=== PATIENT | female | born 1950 | race Asian ===

== ENCOUNTER 2017-10-19 16:34 | Emergency (ER) | payer OTHER ==
[2017-10-19 16:53] VITALS: BP 125/64; PULSE 92; TEMP 98.6; BMI 30.8
--- NOTE | 2017-10-19 16:53 | PDOC ---
Rapid Medical Evaluation Time Seen by Provider: 10/19/17 16:38 Medical Evaluation: Allergies Allergy/AdvReac Type Severity Reaction Status Date / Time No Known Allergies Allergy Verified 09/29/11 21:17 10/19/17 16:49 Pt presents for L hand pain starting 15 days ago, however states the pain got worse today. States she was doing yoga when the pain started. Reports shooting pain down the L 4th and 5th fingers. Pt just returned from [place] yesterday. Exam: able to make a fist, ambulatory Orders: Defer to provider Pt to proceed to ED for further evaluation Discharge Disposition - Diagnosis Hand pain, left - Referrals Referrals: Felix Lutz MD [Primary Care Provider] - - Patient Instructions - Post Discharge Activity
--- NOTE | 2017-10-19 17:40 | PDOC ---
History of Present Illness - General Chief Complaint: Pain Stated Complaint: LEFT ARM PAIN Time Seen by Provider: 10/19/17 16:38 History Source: Patient, Family (daughter) Exam Limitations: Clinical Condition - History of Present Illness Initial Comments: 10/19/17 17:35 Patient with no significant past medical history present with complain of 2 weeks history of persistent left hand on ulnar side of the third to fifth fingers of left hand after doing yoga 2 weeks ago. Patient denies any trauma or injury to hand. 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 Denies any other symptoms Timing/Duration: other (2 weeks) Past History - Past Medical History Allergies/Adverse Reactions: Allergies Allergy/AdvReac Type Severity Reaction Status Date / Time No Known Allergies Allergy Verified 10/19/17 16:49 Home Medications: Ambulatory Orders Acetaminophen W/ Codeine #3 [Tylenol # 3] 1 tab PO TID PRN 09/29/11 Amlodipine Besylate [Norvasc] 10 mg PO DAILY 09/29/11 Atorvastatin Ca [Lipitor (Restricted To Cardiology)] 10 mg PO HS 09/29/11 Gabapentin [Neurontin] 100 mg PO Q8H 09/29/11 Hydromorphone HCl [Exalgo] 8 mg PO DAILY 09/29/11 Propylthiouracil 50 mg PO DAILY 09/29/11 propRANOLol HCL [Inderal -] 10 mg PO BID #10 tablet 09/30/11 Naproxen 500 mg PO BID PRN #20 tablet 10/19/17 Cardiac Disorders: Yes COPD: No HTN: Yes Thyroid Disease: Yes (on PTU) - Suicide/Smoking/Psychosocial Hx Smoking Status: No Smoking History: Never smoked Number of Cigarettes Smoked Daily: 0 Review of Systems - Review of Systems Able to Perform ROS?: Yes Is the patient limited Grenadian proficient: No Constitutional: No: Chills, Fever, Malaise HEENTM: No: Symptoms Reported Respiratory: No: Symptoms reported Cardiac (ROS): No: Symptoms Reported ABD/GI: No: Symptoms Reported Musculoskeletal: Yes: See HPI, Joint Pain (left wrist), Muscle Pain (left hand) . No: Joint Swelling, Muscle Weakness, Joint Stiffness All Other Systems: Reviewed and Negative *Physical Exam - Vital Signs Last Vital Signs Temp Pulse Resp BP Pulse Ox 98.6 F 92 H 19 125/64 96 10/19/17 16:49 10/19/17 16:49 10/19/17 16:49 10/19/17 16:49 10/19/17 16:49 - Physical Exam Comments: 10/19/17 17:38 GENERAL: Well developed, well nourished. Awake and alert. No acute distress. MUSCULOSKELETAL : Mild tenderness over metacarpal and phalanges of third to fifth digits left hand. No bony deformities . 5 out of 5 muscle strength of left wrist. Normal handgrip EXTREMITIES: No cyanosis. No clubbing. No edema. No calf tenderness. SKIN: Warm and dry. Normal capillary refill. No rashes. No jaundice. NEUROLOGICAL: Alert, awake, appropriate. No motor deficits in the lower extremities. Gait is normal without ataxia. PSYCHIATRIC: Cooperative. Good eye contact. Appropriate mood and affect. General Appearance: Yes: Nourished, Appropriately Dressed. No: Apparent Distress ED Treatment Course - RADIOLOGY Radiology Studies Ordered: Category Date Time Status WRIST W/HAND-LEFT* [RAD] Stat Radiology 10/19/17 17:34 Ordered Medical Decision Making - Medical Decision Making 10/19/17 17:39 Patient with no significant past medical history present with complain of over 2 weeks history of persistent left hand pain status post yoga 2 weeks ago with no trauma or injury. Exam significant for mild tenderness to last 3 digits of left hand. No deformity or swelling to hand. X-ray of left hand and wrist ordered. Treat based on imaging results 10/19/17 18:40 X-ray of left wrist and hand with no acute pathology or fracture. Patient be discharged home on an brace and NSAIDs with orthopedist follow-up *DC/Admit/Observation/Transfer Diagnosis at time of Disposition: Hand pain, left - Discharge Dispostion Disposition: HOME Condition at time of disposition: Stable Decision to Admit order: No - Prescriptions Prescriptions: Naproxen 500 mg PO BID PRN #20 tablet PRN Reason: hand pain - Referrals Referrals: Felix Luzt MD [Primary Care Provider] - Reji Moulton MD [Staff Physician] - - Patient Instructions Printed Discharge Instructions: DI for Hand Pain Additional Instructions: Take prescribed medication as needed for pain. Keep wrist support on until symptoms resolved. Follow-up with preferred orthopedics if symptoms persist for more than 5 days - Post Discharge Activity
== END 2017-10-19 18:43 | disposition home or self-care (01) ==
LOC: JERFT 16:34
DX: M79.642 Pain in left hand (principal); X50.1XXA Overexertion from prolonged static or awkward postures, initial encounter; Y93.42 Activity, yoga; Y92.89 Other specified places as the place of occurrence of the external cause; Y99.8 Other external cause status
CPT/HCPCS: 73110-TC-LR-FY; 73130-TC-LR-FY; 99281-25

== ENCOUNTER 2017-11-11 12:27 | Emergency (ER) | payer OTHER ==
[2017-11-11 12:39] VITALS: BMI 31.1
--- NOTE | 2017-11-11 13:08 | PDOC ---
History of Present Illness - General Chief Complaint: Pain Stated Complaint: ABD PAIN Time Seen by Provider: 11/11/17 13:08 History Source: Patient Exam Limitations: No Limitations - History of Present Illness Initial Comments: 11/11/17 13:42 67 year old female with PMH HTN, hyperthyroidism presents to ED for abscess x5 days. She was seen by Dr. Felix Lutz for similar complaints on 11/08, was prescribed Bactrim. Family member reports decreased surrounding erythema but that it is starting to drain pus now. She denies fever, chills, nausea, vomiting , headache, chest pain, shortness of breath or any other complaints. Allergies - NKDA PCP - Felix Lutz Past History - Past Medical History Allergies/Adverse Reactions: Allergies Allergy/AdvReac Type Severity Reaction Status Date / Time No Known Allergies Allergy Verified 10/19/17 16:49 Home Medications: Ambulatory Orders Acetaminophen W/ Codeine #3 [Tylenol # 3] 1 tab PO TID PRN 09/29/11 Amlodipine Besylate [Norvasc] 10 mg PO DAILY 09/29/11 Atorvastatin Ca [Lipitor (Restricted To Cardiology)] 10 mg PO HS 09/29/11 Gabapentin [Neurontin] 100 mg PO Q8H 09/29/11 Hydromorphone HCl [Exalgo] 8 mg PO DAILY 09/29/11 Propylthiouracil 50 mg PO DAILY 09/29/11 propRANOLol HCL [Inderal -] 10 mg PO BID #10 tablet 09/30/11 Naproxen 500 mg PO BID PRN #20 tablet 10/19/17 Clindamycin [Cleocin -] 300 mg PO Q6H #28 capsule 11/11/17 Sulfamethoxazole/Trimethoprim [Bactrim Ds -] 1 tab PO BID 11/11/17 Cardiac Disorders: Yes COPD: No HTN: Yes Thyroid Disease: Yes (on PTU) - Immunization History Immunization Up to Date: No - Suicide/Smoking/Psychosocial Hx Smoking Status: No Smoking History: Never smoked Number of Cigarettes Smoked Daily: 0 Information on smoking cessation initiated: No Hx Alcohol Use: No Drug/Substance Use Hx: No Review of Systems - Review of Systems Able to Perform ROS?: Yes Comments:: 11/11/17 13:43 General: denies fever, chills, night sweats, generalized weakness. HEENT: denies sore throat, rhinorrhea, ear pain. Heart: denies chest pain, palpitations, syncope, lower extremity swelling, diaphoresis. Respiratory: denies shortness of breath, cough, sputum production, hemoptysis. Abdomen: denies abdominal pain, nausea, vomiting, diarrhea, constipation, blood in stool. : denies dysuria, increased urinary frequency, hematuria, urinary incontinence , flank pain. Back: denies back pain. Musculoskeletal: denies joint pain, muscle pain, joint swelling. Neurological: denies headache, dizziness, numbness, tingling, weakness. Skin: admits to abscess. denies laceration, abrasion. *Physical Exam - Vital Signs Last Vital Signs Temp Pulse Resp BP Pulse Ox 98.0 F 96 H 16 131/85 98 11/11/17 12:33 11/11/17 12:33 11/11/17 12:33 11/11/17 12:33 11/11/17 12:33 - Physical Exam Comments: 11/11/17 13:43 Constitutional: Well-nourished, Well-developed, appearing stated age. HEENT: head is normocephalic, atraumatic. EOMI. PERRLA. Neck: supple. Full ROM. Heart: regular rhythm. no murmurs, rubs or gallops. Lungs: clear to auscultation bilaterally. no crackles, rhonchi or wheezing. no stridor. Abdomen: soft, nontender. normal bowel sounds. no rebound, guarding, masses. Extremities: Peripheral pulses intact. No lower extremity edema. Neurological: CN 2-12 grossly intact. Moves all four extremities. Psych: awake, alert, oriented x3. Follows commands. Answers questions appropriately. Skin: 1x2 cm ulcer with surrounding erythema. Abscess appears to have opened on its own. Collection of pus seen at wound site. surrounding induration, no fluctuance. ED Treatment Course - LABORATORY CBC & Chemistry Diagram: 11/11/17 14:25 11/11/17 14:25 Medical Decision Making - Medical Decision Making 11/11/17 13:39 67 year old female with PMH HTN, hyperthyroidism presents to ED for abscess x5 days. She was seen by Dr. Felix Lutz for similar complaints on 11/08, was prescribed Bactrim. Family member reports decreased surrounding erythema but that it is starting to drain pus now. Initial Vital Signs Temp Pulse Resp BP Pulse Ox 98.0 F 96 H 16 131/85 98 11/11/17 12:33 11/11/17 12:33 11/11/17 12:33 11/11/17 12:33 11/11/17 12:33 Afebrile. Borderline tachycardia. No hypotension. No hypoxia on room air. Abscess appears to have opened on its own. Collection of pus seen at wound site. 1x2 cm abscess with surrounding erythema. Concern for failed-outpatient antibiotic. - Clindamycin ordered for MRSA coverage. - CBC, CMP Pt appears well. No systemic signs of infection. Warm compress applied. 11/11/17 15:30 CBC WBC 6.5 K/mm3 (4.0-10.0) 11/11/17 14:25 RBC 4.57 M/mm3 (3.60-5.2) 11/11/17 14:25 Hgb 12.0 GM/dL (10.7-15.3) 11/11/17 14:25 Hct 37.4 % (32.4-45.2) 11/11/17 14:25 MCV 81.8 fl (80-96) 11/11/17 14:25 MCH 26.2 pg (25.7-33.7) 11/11/17 14:25 MCHC 32.0 g/dl (32.0-36.0) 11/11/17 14:25 RDW 14.5 % (11.6-15.6) 11/11/17 14:25 Plt Count 201 K/MM3 (134-434) 11/11/17 14:25 MPV 8.8 fl (7.5-11.1) 11/11/17 14:25 Absolute Neuts (auto) 4.2 K/mm3 (1.5-8.0) 11/11/17 14:25 Neutrophils % 65.2 % (42.8-82.8) 11/11/17 14:25 Lymphocytes % 24.2 % (8-40) 11/11/17 14:25 Monocytes % 6.3 % (3.8-10.2) 11/11/17 14:25 Eosinophils % 3.4 % (0-4.5) D 11/11/17 14:25 Basophils % 0.9 % (0-2.0) 11/11/17 14:25 Nucleated RBC % 0 % (0-0) 11/11/17 14:25 No leukocytosis. No anemia. CMP Sodium 135 mmol/L (136-145) L 11/11/17 14:25 Potassium 5.0 mmol/L (3.5-5.1) 11/11/17 14:25 Chloride 106 mmol/L (98-107) 11/11/17 14:25 Carbon Dioxide 25 mmol/L (21-32) 11/11/17 14:25 Anion Gap 4 MMOL/L (8-16) L 11/11/17 14:25 BUN 23 mg/dL (7-18) H 11/11/17 14:25 Creatinine 1.5 mg/dL (0.55-1.3) H 11/11/17 14:25 Creat Clearance w eGFR 34.53 (>60) 11/11/17 14:25 Random Glucose 88 mg/dL (74-106) 11/11/17 14:25 Calcium 9.2 mg/dL (8.5-10.1) 11/11/17 14:25 Total Bilirubin 0.3 mg/dL (0.2-1) 11/11/17 14:25 AST 24 U/L (15-37) 11/11/17 14:25 ALT 15 U/L (13-61) 11/11/17 14:25 Alkaline Phosphatase 102 U/L (45-117) 11/11/17 14:25 Total Protein 7.8 g/dl (6.4-8.2) 11/11/17 14:25 Albumin 3.3 g/dl (3.4-5.0) L 11/11/17 14:25 Cr 1.5, similar to prior in 2016 (1.4) Wound care paged to set up out patient appointment. Pt will be switched from Bactrim to Clindamycin. 11/11/17 15:51 Wound care stated the earliest appointment they have is WednesdayNovember 17 at 1030 AM. I discussed discharging the patient with Clindamycin and close PCP follow up. The patient and her family about the plan for care, with which they agree. *DC/Admit/Observation/Transfer Diagnosis at time of Disposition: Abscess - Discharge Dispostion Disposition: HOME Condition at time of disposition: Stable Decision to Admit order: No - Prescriptions Prescriptions: Clindamycin [Cleocin -] 300 mg PO Q6H #28 capsule - Referrals Referrals: Felix Lutz MD [Primary Care Provider] - - Patient Instructions Printed Discharge Instructions: DI for Skin Abscess Additional Instructions: You were seen today for abscess. Your blood work was normal. Stop taking the Sulfamethoxazole/Trimethoprim. I have written a prescription for a new antibiotic, called Clindamycin, take as directed on the bottle. Take Tylenol over the counter for pain, take as directed on the package. I have made an appointment for you to see a language specialist, Dr. Kunz. - The appointment is for WednesdayNovember 17 at 10:00 AM at [facility] on the 5th floor. - Their phone number is [phone] - Do not miss this appointment. Your care is not complete until you follow up. Apply warm wet compresses to the area. - You can wet a towel and put a heating pad over it Follow up with your primary care doctor, Dr. Lutz, within 2 days. Call his office today and make an appointment for today or tomorrow. Tell them you were seen in the Emergency Department. Return to the Emergency Department for fever, chills, nausea, vomiting, chest pain, shortness of breath, ill-appearance, increasing size of abscess, increasing redness around abscess, or any other new, worsening or concerning symptoms. - Post Discharge Activity
--- NOTE | 2017-11-11 13:36 | PDOC ---
Attending Attestation - HPI HPI: 11/11/17 14:52 The patient is a 67 year old female with a significant past medical history of HTN and hyperthyroidism who presents to the ER with an abscess for the past 5 days. Patient went to see Dr. Washington on 11/08 for this abscess and was given Bactrim with minimal improvement. At presentation, the abscess is noted to be draining pus. The patient denies chest pain, shortness of breath, headache, and dizziness. Denies fever, chills, nausea, vomit, diarrhea, and constipation. Denies dysuria, frequency, urgency, and hematuria. Allergies: NKA Past surgical history: None reported. Social history: No reported alcohol, drug, or cigarette use. PCP: Dr. Felix Lutz - Physicial Exam PE: 11/11/17 14:53 Adult Physical Exam Vitals: Triage vital signs reviewed General Appearance: No acute distress, well nourished, well developed Head: Atraumatic Cardiac: Regular rate and rhythm, no murmurs, no rubs, no gallops Lungs: Clear to auscultation bilateral, good air movement bilaterally Abdomen: Soft, nondistended, normal bowel sounds, nontender to palpation Extremities: Full range of motion to all extremities, no cyanosis, clubbing, or edema Skin: Warm and dry, no petechiae. (+) 1x 2cm abscess with surrounding erythema , appears to have opened on its own with a collection of pus. Neuro: AOX3; Cranial Nerves 2-12 grossly intact, Strength intact to all extremities, Sensation intact to all extremities, gait normal Psych: Normal mood, normal affect <Deepthi Caballero - Last Filed: 11/11/17 14:52> - Resident Resident Name: Libby Golden - ED Attending Attestation I have performed the following: I have examined & evaluated the patient, The case was reviewed & discussed with the resident, I agree w/resident's findings & plan, Exceptions are as noted - Medical Decision Making 11/11/17 16:01 5 day history of assess which has now opened and drained small amount of thick adherent material to the top nonamenable to removal in the emergency department No fever elevated white blood cell count patient well-appearing in no apparent distress. We'll change his antibiotics to clindamycin we have arranged for her to follow-up and wound care on Wednesday she will apply warm compresses and bacitracin in the meantime she'll return to the ED for any severe worsening symptoms or for any concerns. <Law Reyes - Last Filed: 11/11/17 16:02>
[2017-11-11] MEDS ORDERED: CLINDAMYCIN HCL 150 MG CAPSULE (FP) PO ONE (13:53)
[2017-11-11 14:47] LABS: BASO % 0.9 % (0-2.0); EOS % 3.4 % (0-4.5); HEMATOCRIT 37.4 % (32.4-45.2); LYMPH % 24.2 % (8-40); MCH 26.2 pg (25.7-33.7); MEAN CELL VOLUME 81.8 fl (80-96); MEAN PLT VOLUME 8.8 fl (7.5-11.1); MONO % 6.3 % (3.8-10.2); NEUT % 65.2 % (42.8-82.8); PLATELET COUNT 201 K/MM3 (134-434); RBC 4.57 M/mm3 (3.60-5.2); RDW 14.5 % (11.6-15.6); WHITE BLOOD COUNT 6.5 K/mm3 (4.0-10.0)
[2017-11-11] MEDS ORDERED: CLINDAMYCIN HCL 150 MG CAPSULE (FP) ONE ×2 (14:56)
[2017-11-11 15:44] LABS: ALBUMIN 3.3 g/dl (3.4-5.0); ALK PHOS 102 U/L (45-117); ANION GAP 4 MMOL/L (8-16); BILIRUBIN,TOTAL 0.3 mg/dL (0.2-1); BLOOD UREA NITROGEN 23 mg/dL (7-18); CALCIUM 9.2 mg/dL (8.5-10.1); CHLORIDE 106 mmol/L (98-107); CO2 25 mmol/L (21-32); CREATININE 1.5 mg/dL (0.55-1.3); GLUCOSE,RANDOM 88 mg/dL (74-106); SGOT/AST 24 U/L (15-37); SGPT/ALT 15 U/L (13-61); SODIUM 135 mmol/L (136-145); TOT PROT 7.8 g/dl (6.4-8.2)
[2017-11-11 16:26] VITALS: BP 125/77; PULSE 92; TEMP 97.8
== END 2017-11-11 16:20 | disposition home or self-care (01) ==
LOC: JER 12:27
DX: L02.211 Cutaneous abscess of abdominal wall (principal); I10 Essential (primary) hypertension; E05.90 Thyrotoxicosis, unspecified without thyrotoxic crisis or storm
CPT/HCPCS: 36415; 80053; 85025; 87070; 87186; 87205; 99283-25

== ENCOUNTER 2017-11-29 08:15 | Day surgery (SDC) | payer OTHER ==
[2017-11-25 12:56] VITALS: BMI 29.9
[~2017-11-29 08:15] MED LIST: PHENYLEPHRINE/KETOROLAC 4 ML VIAL IO ONE; TOBRA 0.3%/DEXAMETH 0.1% OPHTHALMIC SUSP 2.5 ML BTL TP ONE
[2017-11-29 08:35] VITALS: TEMP 95.6
[2017-11-29] MEDS ORDERED: MOXIFLOXACIN HCL 0.5% OPHTHALMIC 3 ML BOTTLE ONE (08:52)
[2017-11-29] MEDS ORDERED: DICLOFENAC SODIUM 0.1% OPHTHALMIC 2.5ML BOTTLE ONE (08:53)
[2017-11-29] MEDS ORDERED: TROPICAMIDE 1% OPHTH SOLN 15 ML BOTTLE ONE (08:53)
[2017-11-29] MEDS ORDERED: PHENYLEPHRINE 2.5% OPHTH SOLN 15 ML BOTTLE ONE (08:53)
[2017-11-29] MEDS ORDERED: CYCLOPENTOLATE HCL 1% OPHTH SOLN 2 ML BOTTLE ONE (08:53)
[2017-11-29] MEDS ORDERED: PHENYLEPHRINE 2.5% OPHTH SOLN 15 ML BOTTLE OD ONE ×3 (08:55→09:15)
[2017-11-29] MEDS ORDERED: DICLOFENAC SODIUM 0.1% OPHTHALMIC 2.5ML BOTTLE OD ONE ×3 (08:55→09:15)
[2017-11-29] MEDS ORDERED: CYCLOPENTOLATE HCL 1% OPHTH SOLN 2 ML BOTTLE OD ONE ×3 (08:55→09:15)
[2017-11-29] MEDS ORDERED: TROPICAMIDE 1% OPHTH SOLN 15 ML BOTTLE OD ONE ×3 (08:55→09:15)
[2017-11-29] MEDS ORDERED: MOXIFLOXACIN HCL 0.5% OPHTHALMIC 3 ML BOTTLE OD ONE ×3 (08:55→09:15)
[2017-11-29] MEDS ORDERED: ONDANSETRON 4 MG/2 ML VIAL IVPUSH PRN (09:24)
[2017-11-29] MEDS ORDERED: TETRACAINE 0.5% OPHTH SOLN 2 ML BOTTLE OD ONE (09:41)
[2017-11-29] MEDS ORDERED: POVIDONE-IODINE 5% OPHTHALMIC PREP 30 ML SOLUTION OD ONE (09:45)
[2017-11-29] MEDS ORDERED: POVIDONE-IODINE 5% OPHTHALMIC PREP 30 ML SOLUTION ONE (10:03)
[2017-11-29] MEDS ORDERED: CHONDROITIN SU A/HYALUR SOD 1 KIT IO ONE (10:16)
[2017-11-29] MEDS ORDERED: BSS (NA/CA/MG/K) BALANCED SALT SOLUTION OPHTH SOLN 15 ML BOTTLE OD ONE (10:16)
[2017-11-29] MEDS ORDERED: LIDOCAINE HCL 1% PRESERVATIVE FREE - 30ML VIAL IO ONE (10:16)
[2017-11-29] MEDS ORDERED: EPINEPHrine/PF 1 MG/1 ML (1:1,000) AMPULE SQ ONE (10:21)
[2017-11-29] MEDS ORDERED: TOBRA 0.3%/DEXAMETH 0.1% OPHTHALMIC SUSP 2.5 ML BTL TP ONE (10:40)
[2017-11-29 12:46] VITALS: BP 141/78; PULSE 98
--- NOTE | 2017-11-29 17:11 | OP ---
DATE OF OPERATION: 11/29/2017 SURGEON: Rafi Theodore MD PREOPERATIVE DIAGNOSIS: Cataract, right eye. POSTOPERATIVE DIAGNOSIS: Cataract, right eye. PROCEDURE: Phacoemulsification of cataract, right eye with in bag placement of SN60WF with 19.5 diopter intraocular lens. ANESTHESIA: Local. DESCRIPTION OF PROCEDURE: The patient was brought to the operating room, and the right eye was prepped and draped in the usual sterile fashion for ophthalmic surgery. The microscope was swung into position, and a 2.75 keratome was used to enter the anterior chamber at approximately 10 o'clock position with an accessory port made at approximately the 2 o'clock position after filling the anterior chamber with 0.5 mL of preservative-free lidocaine and Viscoelastic. Cystotome and Utrata forceps were used to make a continuous circular capsulorrhexis, and BSS was used to perform hyrodissection and hydrodelineation of the lens nucleus, which was then rotated freely. Phacoemulsification was carried out in a [id number] technique. IA was used to remove residual cortical material from the capsular bag, which was found to be intact and filled with Synvisc. A 19.5 diopter IOL injected SN60WF into the capsular bag and rotated into position using the Sinskey hook. IA was used to remove residual viscoelastic from the capsular bag and the anterior chamber. BSS was used to perform hydration of the corneal wound lip wounds, which were then found to be watertight. A contact lens soaked in Tobradex solution for approximately 10 minutes was then draped on the cornea. The eye was patched and shielded. The patient was transferred to the recovery room in a stable condition having tolerated the procedure well. RAFI THEODORE M.D. [id number]
== END 2017-11-29 12:00 | disposition home or self-care (01) ==
LOC: JASU-SURG 08:15
PROVIDERS: ATTEND Ophthalmology
PROC: 08RJ3JZ Replacement of Right Lens with Synthetic Substitute, Percutaneous Approach (ICD-10-PCS; principal; 2017-11-29 09:00)
DX: H26.9 Unspecified cataract (principal)

== ENCOUNTER 2018-05-08 19:40 | Emergency (ER) | payer OTHER ==
[2018-05-08 19:54] VITALS: BP 130/83; PULSE 84; TEMP 97.5; BMI 31.9
[2018-05-08] MEDS ORDERED: ACETAMINOPHEN 500 MG TABLET (FP) PO ONE (21:10)
--- NOTE | 2018-05-08 21:10 | PDOC ---
History of Present Illness - General Chief Complaint: Pain Stated Complaint: FALL, BOTH KNEE PAIN & SWOLLEN History Source: Patient, Family Exam Limitations: No Limitations - History of Present Illness Initial Comments: 05/08/18 21:07 Patient is a 67-year-old female with history of hypothyroid, HTN, bilateral knee replacement, cataract surgery right eye, here for complaint of bilateral knee pain. Patient states about 3:30 PM she was walking and lost her balance and fell on her knee. There was no head strike. Now complains of 9/10 pain over the e anterior knee bilaterally. Denies dizziness, shortness of breath, chest pain. PMD: Dr Sorenson PMHX: as above PSocHx: neg for cig, durgs, etoh ALL: NKDA GENERAL/CONSTITUTIONAL: [No fever or chills. No weakness. No weight change.] HEAD, EYES, EARS, NOSE AND THROAT: [No change in vision. No ear pain or discharge. No sore throat.] CARDIOVASCULAR: [No chest pain or shortness of breath.] RESPIRATORY: [No cough, wheezing, or hemoptysis.] GASTROINTESTINAL: [No nausea, vomiting, diarrhea or constipation. No rectal bleeding.] GENITOURINARY: [No dysuria, frequency, or change in urination.] MUSCULOSKELETAL: [(+) joint or muscle swelling or pain. No neck or back pain.] SKIN AND BREASTS: [No rash or easy bruising.] NEUROLOGIC: [No headache, vertigo, loss of consciousness, or loss of sensation.] PSYCHIATRIC: [No depression or anxiety.] ENDOCRINE: [No increased thirst. No abnormal weight change.] HEMATOLOGIC/LYMPHATIC: [No anemia, easy bleeding, or history of blood clots.] ALLERGIC/IMMUNOLOGIC: [No hives or skin allergy. No latex allergy.] GENERAL: [The patient is awake, alert, and fully oriented, in no acute distress. ] HEAD: [Normal with no signs of trauma.] EYES: [Pupils equal, round and reactive to light, extraocular movements intact, sclera anicteric, conjunctiva clear.] LUNGS: [Breath sounds equal, clear to auscultation bilaterally. No wheezes, and no crackles.] HEART: [Regular rate and rhythm, normal S1 and S2 without murmur, rub.] ABDOMEN: [Soft, nontender, normoactive bowel sounds. No guarding, no rebound. No masses.] EXTREMITIES: [Normal range of motion, mild swelling, (+) bruising, tenderness to palp anterior knee, sutures old intact. No clubbing or cyanosis. No cords, erythema, or tenderness.] NEUROLOGICAL: [Cranial nerves II through XII grossly intact. Normal speech, normal gait.] PSYCH: [Normal mood, normal affect.] SKIN: [Warm, Dry, normal turgor, bruising over anterior knee] Past History - Past Medical History Allergies/Adverse Reactions: Allergies Allergy/AdvReac Type Severity Reaction Status Date / Time No Known Allergies Allergy Verified 10/19/17 16:49 Home Medications: Ambulatory Orders Amlodipine Besylate [Norvasc] 5 mg PO DAILY 09/29/11 Propylthiouracil 100 mg PO TID 11/25/17 Cardiac Disorders: Yes COPD: No HTN: Yes Thyroid Disease: Yes (on PTU) - Surgical History Orthopedic Surgery: Yes (knee replacement) - Immunization History Immunization Up to Date: No - Suicide/Smoking/Psychosocial Hx Smoking Status: No Smoking History: Never smoked Have you smoked in the past 12 months: No Number of Cigarettes Smoked Daily: 0 Information on smoking cessation initiated: No Hx Alcohol Use: No Drug/Substance Use Hx: No Substance Use Type: None *Physical Exam - Vital Signs Last Vital Signs Temp Pulse Resp BP Pulse Ox 97.5 F L 84 20 130/83 100 05/08/18 19:48 05/08/18 19:48 05/08/18 19:48 05/08/18 19:48 05/08/18 19:48 Medical Decision Making - Medical Decision Making 05/08/18 21:07 Patient is a 67-year-old female with history of hypothyroid, HTN, bilateral knee replacement, cataract surgery right eye, here for complaint of bilateral knee pain. Patient states about 3:30 PM she was walking and lost her balance and fell on her knee. There was no head strike. Now complains of 9/10 pain over the e anterior knee bilaterally. Denies dizziness, shortness of breath, chest pain. On exam noted to have some bruising but has range of motion of the knee. X-ray bilateral knee check hardware. Tylenol Discharged in stable. X-ray reviewed Hardware is intact I discussed the physical exam findings, ancillary test results and final diagnoses with the patient. I answered all of the patient's questions. The patient was satisfied with the care received and felt comfortable with the discharge plan and treatment plan. The Patient agrees to follow up with the primary care physician within 24-72 hours. *DC/Admit/Observation/Transfer Diagnosis at time of Disposition: Contusion Qualifiers: Encounter type: initial encounter Contusion area: knee Laterality: right Qualified Code(s): S80.01XA - Contusion of right knee, initial encounter - Discharge Dispostion Disposition: HOME Condition at time of disposition: Stable - Referrals - Patient Instructions Printed Discharge Instructions: DI for Contusion Additional Instructions: Your Discharge Instructions: You must call primary care physician within 24 hours to arrange follow-up. Return to the Emergency Department with any new, persistent or worsening symptoms, for fever, chills, SOB, dizziness or any other concerning changes that may occur. Ice to bilateral knees for 24-48 hours at 20 minute intervals. Take Tylenol or Motrin for pain as needed. - Post Discharge Activity
[2018-05-08] MEDS ORDERED: ACETAMINOPHEN 325 MG TABLET (FP) ONE (21:30)
== END 2018-05-08 22:22 | disposition home or self-care (01) ==
LOC: JERFT 19:40
DX: S80.01XA Contusion of right knee, initial encounter (principal); I10 Essential (primary) hypertension; E03.9 Hypothyroidism, unspecified; Z96.653 Presence of artificial knee joint, bilateral
CPT/HCPCS: 73562-TC-LT-FY; 99281-25